=== PATIENT | female | born 1995 | race Caucasian/White ===

== ENCOUNTER 2019-05-16 22:05 | Emergency (ER) | payer OTHER ==
[~2019-05-16] VITALS: Ht 170.2 cm; Wt 74.4 kg
[2019-05-16 22:11] VITALS: Ht 170.2 cm; Wt 74.4 kg
[2019-05-16 23:45] VITALS: BP 137/86
== END 2019-05-16 23:45 | disposition home or self-care (01) ==
LOC: ED 22:05
DX: F41.9 Anxiety disorder, unspecified (principal); R06.02 Shortness of breath; F17.210 Nicotine dependence, cigarettes, uncomplicated; R20.2 Paresthesia of skin; Z88.0 Allergy status to penicillin
CPT/HCPCS: 99406